=== PATIENT | male | born 1965 | race Caucasian/White ===

== ENCOUNTER 2018-01-28 13:21 | Emergency (ER) | payer SELFPAY ==
[2018-01-28 13:24] VITALS: BP 177/85; BMI 29.9
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
== END 2018-01-28 16:23 | disposition left against medical advice (07) ==
LOC: ER 13:28
DX: S22.088A Other fracture of T11-T12 vertebra, initial encounter for closed fracture (principal); S20.219A Contusion of unspecified front wall of thorax, initial encounter; M25.551 Pain in right hip; M54.5 Low back pain
CPT/HCPCS: 71046; 71120; 72131; 73501; 99283

== ENCOUNTER 2020-11-13 13:09 | Inpatient (IN) ==
[2020-11-13 14:06] VITALS: BMI 31.2
--- NOTE | 2020-11-13 14:12 | DR.DIZZY ---
HPI Time seen Time Seen by Provider: 11/13/20 13:42 HPI Comment HPI Comment: Patient sent to the ED via his PCP for admission. Patient notes that he has had flu like sx for the past 3-4 days. Notes nausea and vomiting. Denies any known sick contacts. Notes he has h/o HTN, which is very well controlled. Context Stroke Symptoms: None PMH PMH Past Surgical History: No Surgical History: No History Social History Do you use any recreational Drugs:: No ROS Review of Systems Constitutional: See HPI Respiratoy: Non-Productive Cough All Other Systems: Reviewed and Negative PE Vital Signs Vitals: Pulse Rate 81 Respiratory Rate 24 Blood Pressure 85/54 O2 Sat by Pulse Oximetry 94 General Limitations: No Limitations General Appearance: Alert and In No Apparent Distress Head Head Exam: Normal Inspection, Atraumatic and Normocephalic Eyes Eye exam: Normal Appearance and EOMI ENT ENT Exam: Normal Exam Neck Neck Exam: Normal Inspection Chest Chest Inspection: Normal Inspection and Symmetric Chest Wall Rise Respiratory Respiratory Exam: Bilateral: Rhonchi Cardiovascular Cardiovascular Exam: Regular Rate, Normal Rhythm and Normal Heart Sounds Abdominal Exam Abdominal Exam: Normal Inspection, Normal Bowel Sounds and Soft Extremeties Extremities Exam: Normal Inspection ROR Labs Reviewed Laboratory Results Reviewed?: Yes Result Diagrams: 11/13/20 14:57 11/13/20 14:57 Laboratory: WBC 22.3 X10^3/uL (3.6-10.0) H 11/13/20 14:57 RBC 4.97 X10^6/uL (4.7-6.0) 11/13/20 14:57 Hgb 20.9 g/dL (13.5-18.0) H* 11/13/20 14:57 Hct 59.7 % (42.0-54.0) H* 11/13/20 14:57 MCV 120.1 fL (80.0-100.0) H 11/13/20 14:57 MCH 42.1 pg (27.0-34.0) H 11/13/20 14:57 MCHC 35.0 g/dL (33.0-35.0) 11/13/20 14:57 RDW 14.4 % (11.6-16.5) 11/13/20 14:57 Plt Count 218 X10^3/uL (150.0-450.0) 11/13/20 14:57 Plt Count Comment Adequate (ADEQUATE) 11/13/20 14:57 MPV 8.5 fL (7.4-11.0) 11/13/20 14:57 Neut % (Auto) 81.0 % (42.0-75.0) H 11/13/20 14:57 Lymph % (Auto) 7.9 % (21.0-51.0) L 11/13/20 14:57 Martin % (Auto) 10.8 % (0.0-13.0) 11/13/20 14:57 Eos % (Auto) 0.1 % (0.9-2.9) L 11/13/20 14:57 Baso % (Auto) 0.2 % (0.2-1.0) 11/13/20 14:57 Neut # (Auto) 18.0 x10^3/uL (2.2-4.8) H 11/13/20 14:57 Lymph # (Auto) 1.8 X10^3/uL (1.3-2.9) 11/13/20 14:57 Martin # (Auto) 2.4 x10^3/uL (0.3-0.8) H 11/13/20 14:57 Eos # (Auto) 0.0 x10^3/uL (0.0-0.2) 11/13/20 14:57 Baso # (Auto) 0.0 X10^3/uL (0.0-0.1) 11/13/20 14:57 Absolute Nucleated RBC 0.8 /100WBC 11/13/20 14:57 Total Counted 100 11/13/20 14:57 Neutrophils % (Manual) 85 % (39-76) H 11/13/20 14:57 Lymphocytes % (Manual) 6 % (13-43) L 11/13/20 14:57 Monocytes % (Manual) 9 % (4-9) 11/13/20 14:57 Plt Morphology Comment Normal (NORMAL) 11/13/20 14:57 RBC Morphology Normal (NORMAL) 11/13/20 14:57 Macrocytosis 3+ A 11/13/20 14:57 Sodium 134 mmol/L (136-145) L 11/13/20 14:57 Corrected Sodium TNP 11/13/20 14:57 Potassium 3.5 mmol/L (3.5-5.1) 11/13/20 14:57 Chloride 91 mmol/L (98-107) L 11/13/20 14:57 Carbon Dioxide 19.7 mmol/L (21-32) L 11/13/20 14:57 BUN 50 mg/dL (7-18) H 11/13/20 14:57 Creatinine 9.06 mg/dL (0.70-1.30) H 11/13/20 14:57 Est GFR (MDRD) Af Amer 8 (>60) L 11/13/20 14:57 Est GFR (MDRD) Non-Af 6 (>60) L 11/13/20 14:57 Glucose 107 mg/dL (65-99) H 11/13/20 14:57 Calcium 10.0 mg/dL (8.5-10.1) 11/13/20 14:57 Corrected Calcium TNP 11/13/20 14:57 Total Bilirubin 0.30 mg/dL (0.2-1.0) 11/13/20 14:57 AST 28 Units/L (15-37) 11/13/20 14:57 ALT 38 Units/L (12-78) 11/13/20 14:57 Alkaline Phosphatase 82 Units/L (46-116) 11/13/20 14:57 Total Protein 9.6 g/dL (6.4-8.2) H 11/13/20 14:57 Albumin 4.0 g/dL (3.4-5.0) 11/13/20 14:57 Globulin 5.6 g/dL (2.5-4.5) H 11/13/20 14:57 Albumin/Globulin Ratio 0.7 Ratio (1.1-2.1) L 11/13/20 14:57 SARS CoV-2 RNA Rapid YESI Negative (NEGATIVE) 11/13/20 15:23 Opioid Opioid Risk Tool Total: 0 Total Score Risk Category: Low Risk Copyright: H[employer] predicting aberrant behaviors Diagnosis Discharge Problem: Pneumonia Qualifiers: Pneumonia type: due to unspecified organism Laterality: unspecified laterality Lung location: unspecified part of lung Qualified Code(s): J18.9 - Pneumonia, unspecified organism
[2020-11-13] MEDS ORDERED: NS 1000 ML 1,000 ML IV ONE ×3 (14:30→19:51)
[2020-11-13] MEDS ORDERED: NS 1000 ML 1,000 ML ONE ×3 (15:29→22:11)
[2020-11-13 16:00] LABS: BASOPHILS % (AUTO) 0.2 % (0.2-1.0); EOSINOPHILS % (AUTO) 0.1 % (0.9-2.9); LYMPHOCYTES # (AUTO) 1.8 X10^3/uL (1.3-2.9); LYMPHOCYTES % (AUTO) 7.9 % (21.0-51.0); MEAN CORPUSCULAR HEMOGLOBIN 42.1 pg (27.0-34.0); MEAN CORPUSCULAR VOLUME 120.1 fL (80.0-100.0); MEAN PLATELET VOLUME 8.5 fL (7.4-11.0); MONOCYTES # (AUTO) 2.4 x10^3/uL (0.3-0.8); MONOCYTES % (AUTO) 10.8 % (0.0-13.0); PLATELET COUNT 218 X10^3/uL (150.0-450.0); RED BLOOD COUNT 4.97 X10^6/uL (4.7-6.0); RED CELL DISTRIBUTION WIDTH 14.4 % (11.6-16.5); WHITE BLOOD COUNT 22.3 X10^3/uL (3.6-10.0)
[2020-11-13 16:08] LABS: HEMOGLOBIN 20.9 g/dL (13.5-18.0)
[2020-11-13] MEDS ORDERED: NS 100 ML IV 100 ML IV ONE (16:19)
[2020-11-13 16:25] LABS: ALANINE AMINOTRANSFERASE 38 Units/L (12-78); ALKALINE PHOSPHATASE 82 Units/L (46-116); ASPARTATE AMINO TRANSFERASE 28 Units/L (15-37); BLOOD UREA NITROGEN 50 mg/dL (7-18); CARBON DIOXIDE 19.7 mmol/L (21-32); CHLORIDE 91 mmol/L (98-107); CREATININE 9.06 mg/dL (0.70-1.30); SODIUM 134 mmol/L (136-145); TOTAL PROTEIN 9.6 g/dL (6.4-8.2); eGFR NON BLACK RACES 6 (>60)
[2020-11-13 16:53] LABS: PLATELET MORPHOLOGY COMMENT NORMAL (NORMAL)
--- NOTE | 2020-11-13 17:59 | CT ---
PROCEDURE: CT abdomen pelvis without contrast.HISTORY: Abdomen pain with nausea, vomiting, and diarrhea.TECHNIQUE: Axial images were performed through the abdomen and pelvis without the administration of IV contrast with multiplanar reformations . Oral contrast was not administered . Dose reduction techniques including Automated Exposure Control (AEC) and adjustment of mA and kV were utilized .COMPARISON: None .TECHNICAL QUALITY: Satisfactory .FINDINGS:Clear lung bases.Mild diffuse hepatic steatosis. Spleen, adrenals, pancreas show no abnormality. Kidneys show no masses, urinary tract stones, obstructive uropathy.Normal biliary tract.No abdominal ascites or pneumoperitoneum.Mild atherosclerosis aorta.No lymphadenopathy.No bowel obstruction or inflammation. Normal appendix right lower quadrant.Pelvis shows no masses or free fluid in normal urinary bladder.No acute bony abnormality.IMPRESSION:1. No bowel obstruction or inflammation.2. Mild diffuse hepatic steatosis.3. No other significant abnormality identified.Electronically signed by: Avery Oliva (Nov 13, 2020 17:57:11)
--- NOTE | 2020-11-13 18:05 | CT ---
HISTORYSOBSTUDYCHEST W/O CONCOMPARISONNoneTECHNIQUEMultiple axial images of the chest were obtained from the thoracic inlet to the upper abdomen without the administration of IV contrast. 3D reconstructions utilizing axial MIPS imaging was performed and reviewed. Dose reduction techniques including Automated Exposure Control (AEC) and adjustment of mA and kV were utilized.FINDINGSNo pneumothorax or effusion. Faint ground-glass opacities in the left upper lobe.The heart is normal in size. No evidence of pericardial disease. Coronary calcifications. No mediastinal or hilar adenopathy.No acute osseous abnormality.Hepatic steatosis. The remaining visualized portions of the upper abdomen demonstrate no significant abnormality.IMPRESSIONFaint ground-glass opacities in the left upper lobe which may reflect atelectasis or mild pneumonia.Electronically signed by: CARMEN KATZ (Nov 13, 2020 18:03:31)
[2020-11-13] MEDS ORDERED: ZOSYN VIAL 3.375 GRAMS 3.375 G in NS 100 ML IV + SPIKE MINIBAG* 100 ML IV ONE (18:39)
[2020-11-13] MEDS ORDERED: ZOSYN VIAL 3.375 GRAMS IV ONE (19:18)
[2020-11-13] MEDS ORDERED: NS 100 ML IV + SPIKE MINIBAG* 100 ML IV ONE (19:18)
[2020-11-13] MEDS ORDERED: VANCOMYCIN IV *PREMIX 1 G/200 ML BAG 1 G/200 ML PIGGYBACK IV ONE (19:56)
[2020-11-13] MEDS: VANCOMYCIN IV *PREMIX 1 G/200 ML BAG 1 G/200 ML PIGGYBACK IV SCH ×3 (19:58→21:22)
[2020-11-13] MEDS ORDERED: LEVSIN/MAALOX/LIDOC VISC ONE (20:23)
[2020-11-13] MEDS ORDERED: LEVSIN/MAALOX/LIDOC VISC PO ONE (20:23)
[2020-11-13] MEDS ORDERED: MARCAINE 0.25% INJ ONE (20:36)
[2020-11-13] MEDS ORDERED: XYLOCAINE 2 % (PLAIN) ONE (20:36)
[2020-11-13] MEDS ORDERED: HYDROCORTISONE CRM 1% TOP PRN (22:07)
[2020-11-13] MEDS ORDERED: NYSTATIN OINT ONE (22:11)
[2020-11-13] MEDS ORDERED: HYDROCORTISONE CRM 1% ONE (22:11)
[2020-11-13] MEDS: NYSTATIN CREAM TOP SCH (22:14)
[2020-11-13 22:37] LABS: BASOPHILS % (AUTO) 0.2 % (0.2-1.0); EOSINOPHILS % (AUTO) 0.1 % (0.9-2.9); HEMATOCRIT 53.6 % (42.0-54.0); HEMOGLOBIN 18.8 g/dL (13.5-18.0); LYMPHOCYTES # (AUTO) 1.8 X10^3/uL (1.3-2.9); LYMPHOCYTES % (AUTO) 7.6 % (21.0-51.0); MEAN CORPUSCULAR HEMOGLOBIN 42.4 pg (27.0-34.0); MEAN CORPUSCULAR VOLUME 121.1 fL (80.0-100.0); MEAN PLATELET VOLUME 8.3 fL (7.4-11.0); MONOCYTES % (AUTO) 12.3 % (0.0-13.0); NEUTROPHILS # (AUTO) 19.3 x10^3/uL (2.2-4.8); NEUTROPHILS % (AUTO) 79.8 % (42.0-75.0); PLATELET COUNT 205 X10^3/uL (150.0-450.0); RED BLOOD COUNT 4.43 X10^6/uL (4.7-6.0); RED CELL DISTRIBUTION WIDTH 14.5 % (11.6-16.5); WHITE BLOOD COUNT 24.2 X10^3/uL (3.6-10.0)
[2020-11-13 22:45] LABS: PLATELET MORPHOLOGY COMMENT NORMAL (NORMAL)
[2020-11-13 22:53] LABS: ALANINE AMINOTRANSFERASE 27 Units/L (12-78); ALBUMIN 3.2 g/dL (3.4-5.0); ALKALINE PHOSPHATASE 63 Units/L (46-116); ASPARTATE AMINO TRANSFERASE 21 Units/L (15-37); BLOOD UREA NITROGEN 56 mg/dL (7-18); CALCIUM 8.6 mg/dL (8.5-10.1); CARBON DIOXIDE 20.3 mmol/L (21-32); CHLORIDE 94 mmol/L (98-107); COR CA(FOR HYPOALB) 9.2 mg/dL (8.5-10.1); CREATININE 9.74 mg/dL (0.70-1.30); SODIUM 134 mmol/L (136-145); TOTAL PROTEIN 7.6 g/dL (6.4-8.2); TROPONIN I < 0.02 ng/mL (0-1.5); eGFR NON BLACK RACES 6 (>60)
[2020-11-13 22:58] LABS: CKMB % 0.6 % (<4); CREATINE KINASE 181 Units/L (39-308); CREATINE KINASE MB < 1.0 ng/mL (0-4.0); TROPONIN I < 0.02 ng/mL (0-1.5)
[2020-11-13] MEDS ORDERED: LOVENOX INJ 30 MG SYR SC SCH (23:00)
[2020-11-13] MEDS: NS 1000 ML 1,000 ML IV SCH (23:00)
[2020-11-13] MEDS ORDERED: DECADRON TAB ONE (23:16)
[2020-11-13] MEDS: ASCORBIC ACID INJ MULTI-DOSE VIAL 1,500 MG in NS 100 ML IV 100 ML IV SCH (23:36)
[2020-11-13] MEDS: DECADRON TAB PO SCH (23:36)
[2020-11-14] MEDS ORDERED: NS 1000 ML 1,000 ML ONE (01:00)
[2020-11-14] MEDS: ZINC SULFATE PO SCH ×3 (02:32→20:30)
[2020-11-14] MEDS: TRICOR TAB 160 MG PO SCH ×2 (02:32→10:50)
[2020-11-14] MEDS: VITAMIN D (1.25MG) PO SCH ×2 (02:32→10:49)
[2020-11-14] MEDS: VITAMIN A PO SCH ×2 (02:33→11:06)
[2020-11-14] MEDS ORDERED: LOVENOX INJ 60 MG SYR SC ONE (02:34)
[2020-11-14] MEDS: ASCORBIC ACID INJ MULTI-DOSE VIAL 1,500 MG in NS 100 ML IV 100 ML IV SCH ×4 (10:35→20:30)
[2020-11-14] MEDS: DECADRON TAB PO SCH (10:50)
[2020-11-14] MEDS: NYSTATIN CREAM TOP SCH ×2 (11:07→20:30)
[2020-11-14 11:33] LABS: HEMATOCRIT 59.7 % (42.0-54.0)
--- NOTE | 2020-11-14 11:36 | DR.H&P ---
H&P - History & Physical for Day of: H&P Date: 11/13/20 - Chief Complaint Chief Complaint: FLU LIKE SYMPTOMS, GARCÍA, KIDNEY FAILURE - History of Present Illness History of Present Illness: PT IS 54M REFERRED TO ER FOR ADMISSION, WITH POSSIBLE TRANSFER TO [facility] DUE TO RENAL FAILURE, NEED OF NEPHROLOGY PT. PT HAD NEGATIVE COVID SWAB IN ER. PT HAD PMH OF CRF, HTN, OA. PT ADMITTED TO [facility] ACUTE ILLNESS RO COVID 19 - Past Medical History Past Medical History: Hypertension - Past Surgical History Surgical History: No History - Medications Home Medications: No Known Drug Allergies Allergy (Verified 01/28/18 13:24) - Review of Systems Constitutional: Weakness Eyes: No Symptoms Reported ENT: No Symptoms Reported Respiratory: SOB with Excertion Cardiovascular: Palpitations Gastrointestinal: Nausea, Vomiting Genitourinary: Other (DECREASED URINE OUTPT) Musculoskeletal: Back Pain, Leg Pain Skin: No Symptoms Reported Neurological: Weakness - Physical Exam Vital Signs: Temperature 98.2 F Pulse Rate [Left Brachial] 78 Pulse Rate 81 Respiratory Rate 24 Blood Pressure [Left Arm] 119/59 Blood Pressure 85/54 O2 Sat by Pulse Oximetry 96 Oriented: Normal Eyes: Normal Ear: Normal Nose: Normal Throat: Normal Respiratory: Diminished Throughout Cardiovascular: Normal : Normal Auscultation: Bowel Sounds: Normal Palpation: Normal Tenderness: Epigastric, Mild Skin: Decreased Turgur Musculoskeletal: Back:Lumbar Psychiatric: Anxiety Affect: Anxious Speech Pattern: Clear, Appropriate - Assessment/Plan (1) Pneumonia Qualifiers: Pneumonia type: due to unspecified organism Laterality: unspecified laterality Lung location: unspecified part of lung Qualified Code(s): J18.9 - Pneumonia, unspecified organism Status: Acute Plan: ADMIT, IV HYDRATION STRICT I&OS. BP CONTROL, BC AND UC. SPUTUM, RESP THERAPY. VERIFY HOME MEDICATION. CT ABD PELVIS AND CT CHEST IN ER, COVID SCREEN (2) Acute renal failure Status: Acute (3) Hypertension Status: Acute - Allergies Allergies/Adverse Reactions: Allergies Allergy/AdvReac Type Severity Reaction Status Date / Time No Known Drug Allergies Allergy Verified 01/28/18 13:24
[2020-11-14 12:05] LABS: ABG BASE EXCESS -13.6 mmol/L (-2.0-2.0)
[2020-11-14 12:06] LABS: ABG ALLEN TEST POS; ABG HCO3 12.4 mmol/L (22-26)
[2020-11-14] MEDS ORDERED: DUONEB 0.5 MG/3 MG (3 mL) NEB ONE (12:19)
[2020-11-14] MEDS: DUONEB 0.5 MG/3 MG (3 mL) NEB SCH ×2 (12:25→21:05)
--- NOTE | 2020-11-14 12:45 | RAD ---
HISTORYPneumoniaSTUDYPortable AP chestCOMPARISONCT chest 11/13/2020, PA chest 01/28/2018FINDINGSNormal heart size and contour. The lungs are clear of active appearing disease. Left upper lobe infiltrate described on recent CT is not definitely identified.IMPRESSIONNo acute chest findings.Electronically signed by: ALISSON ZUNIGA (Nov 14, 2020 12:43:56)
[2020-11-14 14:28] LABS: ALANINE AMINOTRANSFERASE 34 Units/L (12-78); ALBUMIN 3.5 g/dL (3.4-5.0); ALKALINE PHOSPHATASE 76 Units/L (46-116); ASPARTATE AMINO TRANSFERASE 24 Units/L (15-37); BLOOD UREA NITROGEN 67 mg/dL (7-18); CALCIUM 8.5 mg/dL (8.5-10.1); CARBON DIOXIDE 17.5 mmol/L (21-32); CHLORIDE 94 mmol/L (98-107); CREATININE 8.44 mg/dL (0.70-1.30); SODIUM 134 mmol/L (136-145); TOTAL PROTEIN 8.2 g/dL (6.4-8.2); eGFR NON BLACK RACES 7 (>60)
[2020-11-14] MEDS: LIBRIUM PO PRN ×2 (15:23→23:12)
[2020-11-14] MEDS: LOMOTIL PO PRN (15:23)
[2020-11-14] MEDS ORDERED: ZITHROMAX INJ 500 MG VIAL IV ONE (17:02)
[2020-11-14] MEDS ORDERED: NS 250 ML IV 250 ML IV ONE ×2 (17:02→17:12)
[2020-11-14] MEDS: ZITHROMAX INJ 500 MG VIAL 250 MG in NS 250 ML IV 250 ML IV SCH (17:10)
[2020-11-14 18:03] LABS: BILIRUBIN,URINE NEGATIVE (NEGATIVE); BLOOD/HEMOGLOBIN,URINE 2+ (NEGATIVE); GLUCOSE, URINE NEGATIVE (NEGATIVE); KETONES,URINE 2+ (NEGATIVE); LEUKOCYTE ESTERASE ,URINE NEGATIVE (NEGATIVE); NITRITES,URINE NEGATIVE (NEGATIVE); PROTEIN,URINE 3+ (NEGATIVE); UROBILINOGEN,URINE NORMAL (NORMAL)
[2020-11-14 18:18] LABS: AMORPHOUS SEDIMENT,UR 2+ /HPF (NEGATIVE); APPEARANCE,URINE SLIGHTLY HAZY (CLEAR); BACTERIA,URINE TRACE /HPF (NEGATIVE); COLOR,URINE YELLOW (YELLOW); HYALINE CASTS, URINE FEW /LPF (NEGATIVE); SQUAMOUS EPITHELIAL CELL,UR FEW /HPF (NEGATIVE); TRANSITIONAL EPI CELLS,URINE FEW /HPF (NEGATIVE)
[2020-11-14 20:53] LABS: CRYPTOSPORIDIUM PARVUM ANTIGEN NEGATIVE (NEGATIVE); GIARDIA LAMBLIA ANTIGEN NEGATIVE (NEGATIVE)
[2020-11-14] MEDS: PULMICORT NEB TX 0.5 MG NEB SCH (21:05)
[2020-11-15] MEDS: NS 1000 ML 1,000 ML IV SCH (02:36)
[2020-11-15] MEDS: ASCORBIC ACID INJ MULTI-DOSE VIAL 1,500 MG in NS 100 ML IV 100 ML IV SCH ×4 (03:00→21:15)
[2020-11-15 05:33] LABS: BASOPHILS % (AUTO) 0.1 % (0.2-1.0); HEMATOCRIT 48.4 % (42.0-54.0); HEMOGLOBIN 16.9 g/dL (13.5-18.0); LYMPHOCYTES # (AUTO) 1.2 X10^3/uL (1.3-2.9); MEAN CORPUSCULAR HGB CONC 34.9 g/dL (33.0-35.0); MEAN CORPUSCULAR VOLUME 120.4 fL (80.0-100.0); MEAN PLATELET VOLUME 8.2 fL (7.4-11.0); MONOCYTES # (AUTO) 1.3 x10^3/uL (0.3-0.8); MONOCYTES % (AUTO) 7.7 % (0.0-13.0); NEUTROPHILS # (AUTO) 14.6 x10^3/uL (2.2-4.8); NEUTROPHILS % (AUTO) 85.2 % (42.0-75.0); PLATELET COUNT 224 X10^3/uL (150.0-450.0); RED BLOOD COUNT 4.02 X10^6/uL (4.7-6.0); RED CELL DISTRIBUTION WIDTH 14.5 % (11.6-16.5); WHITE BLOOD COUNT 17.1 X10^3/uL (3.6-10.0)
[2020-11-15 05:54] LABS: ALBUMIN 3.1 g/dL (3.4-5.0); CALCIUM 7.7 mg/dL (8.5-10.1); CARBON DIOXIDE 15.5 mmol/L (21-32); COR CA(FOR HYPOALB) 8.4 mg/dL (8.5-10.1); CREATININE 5.9 mg/dL (0.70-1.30); TOTAL PROTEIN 7.1 g/dL (6.4-8.2)
[2020-11-15 06:17] LABS: PLATELET MORPHOLOGY COMMENT NORMAL (NORMAL)
[2020-11-15] MEDS: DUONEB 0.5 MG/3 MG (3 mL) NEB SCH ×3 (06:40→21:15)
[2020-11-15] MEDS ORDERED: VITAMIN A PO SCH (09:00)
[2020-11-15] MEDS ORDERED: VANCOMYCIN IV *PREMIX 1 G/200 ML BAG 1 G/200 ML PIGGYBACK IV SCH (09:00)
[2020-11-15] MEDS: DECADRON TAB PO SCH (09:30)
[2020-11-15] MEDS: LIBRIUM PO PRN ×2 (09:31→21:15)
[2020-11-15] MEDS: NYSTATIN CREAM TOP SCH ×2 (09:31→21:15)
[2020-11-15] MEDS: TRICOR TAB 160 MG PO SCH (09:31)
[2020-11-15] MEDS: VITAMIN D3 125 mcg (5,000 UNITS) PO SCH (09:31)
[2020-11-15] MEDS: LOMOTIL PO PRN (09:31)
[2020-11-15] MEDS: ZINC SULFATE PO SCH ×2 (09:32→21:15)
[2020-11-15] MEDS: ZITHROMAX INJ 500 MG VIAL 250 MG in NS 250 ML IV 250 ML IV SCH (09:32)
[2020-11-15] MEDS: PULMICORT NEB TX 0.5 MG NEB SCH ×2 (10:35→21:15)
[2020-11-15 11:19] LABS: TOTAL PSA 0.49 ng/mL (0.13-4.0)
[2020-11-15] MEDS: NICOTINE PATCH TD SCH (15:30)
[2020-11-16] MEDS: ASCORBIC ACID INJ MULTI-DOSE VIAL 1,500 MG in NS 100 ML IV 100 ML IV SCH ×5 (02:40→21:33)
[2020-11-16] MEDS: NS 1000 ML 1,000 ML IV SCH (03:36)
[2020-11-16 05:56] LABS: ALBUMIN 2.9 g/dL (3.4-5.0); CALCIUM 7.9 mg/dL (8.5-10.1); COR CA(FOR HYPOALB) 8.8 mg/dL (8.5-10.1); CREATININE 2.05 mg/dL (0.70-1.30); TOTAL PROTEIN 6.4 g/dL (6.4-8.2)
[2020-11-16 06:10] LABS: BASOPHILS # (AUTO) 0.1 X10^3/uL (0.0-0.1); BASOPHILS % (AUTO) 0.3 % (0.2-1.0); HEMOGLOBIN 15.5 g/dL (13.5-18.0); LYMPHOCYTES # (AUTO) 1.3 X10^3/uL (1.3-2.9); LYMPHOCYTES % (AUTO) 6.8 % (21.0-51.0); MEAN CORPUSCULAR HEMOGLOBIN 42.3 pg (27.0-34.0); MEAN CORPUSCULAR HGB CONC 35.2 g/dL (33.0-35.0); MEAN CORPUSCULAR VOLUME 120.2 fL (80.0-100.0); MEAN PLATELET VOLUME 8.3 fL (7.4-11.0); MONOCYTES # (AUTO) 1.7 x10^3/uL (0.3-0.8); NEUTROPHILS % (AUTO) 83.9 % (42.0-75.0); PLATELET COUNT 230 X10^3/uL (150.0-450.0); RED BLOOD COUNT 3.66 X10^6/uL (4.7-6.0); RED CELL DISTRIBUTION WIDTH 14.4 % (11.6-16.5); WHITE BLOOD COUNT 19.1 X10^3/uL (3.6-10.0)
[2020-11-16] MEDS: DUONEB 0.5 MG/3 MG (3 mL) NEB SCH ×3 (06:33→20:40)
[2020-11-16 06:54] LABS: PLATELET MORPHOLOGY COMMENT NORMAL (NORMAL)
--- NOTE | 2020-11-16 08:24 | US ---
HISTORYACUTE RENAL FAILURESTUDYRENAL USCOMPARISONNoneTECHNIQUEMultiple rodriguez scale and color flow Doppler images of the kidneys were obtained. The region of the urinary bladder was evaluated as well.FINDINGSThe right kidney is normal in echotexture and size. The right kidney measures 11 cm in length by 5.2 cm AP by 6.9 cm transverse with a cortical thickness of 1.45 cm. There is normal vascular flow to the right kidney.. No focal mass, hydronephrosis, or stones identified.The left kidney is unremarkable in its echotexture and size. The left kidney measures 12.2 cm in length by 5.3 cm AP by 5.6 cm transverse with a cortical thickness of 1.7 cm.. Normal vascular flow to the left kidney is observed. No focal mass, hydronephrosis, or stone can be seen within the left kidney.The region of the urinary bladder is grossly unremarkable.IMPRESSIONUnremarkable evaluation of the kidneys and urinary bladder..Electronically signed by: JOE MORALES (Nov 16, 2020 08:22:18)
[2020-11-16] MEDS ORDERED: PHARMACY COMMENT IV NR (08:30)
[2020-11-16] MEDS: PULMICORT NEB TX 0.5 MG NEB SCH ×2 (09:05→20:40)
[2020-11-16] MEDS: ZITHROMAX INJ 500 MG VIAL 250 MG in NS 250 ML IV 250 ML IV SCH (10:49)
[2020-11-16] MEDS: VITAMIN D3 125 mcg (5,000 UNITS) PO SCH (11:16)
[2020-11-16] MEDS: TRICOR TAB 160 MG PO SCH (11:16)
[2020-11-16] MEDS: DECADRON TAB PO SCH (11:16)
[2020-11-16] MEDS: ZINC SULFATE PO SCH ×2 (11:16→21:33)
[2020-11-16] MEDS: NICOTINE PATCH TD SCH (11:18)
[2020-11-16 12:06] LABS: CREATININE 1.79 mg/dL (0.70-1.30); VANCOMYCIN,TROUGH 8.3 ug/mL (15-20)
[2020-11-16] MEDS ORDERED: VANCOMYCIN IV *PREMIX 1.5 G/300 ML BAG 1.5 G/300 ML PIGGYBACK IV SCH (15:00)
[2020-11-16] MEDS: NYSTATIN CREAM TOP SCH ×2 (15:05→21:33)
[2020-11-16] MEDS: LIBRIUM PO PRN (21:33)
[2020-11-17] MEDS: ASCORBIC ACID INJ MULTI-DOSE VIAL 1,500 MG in NS 100 ML IV 100 ML IV SCH ×2 (02:57→08:42)
[2020-11-17 04:33] LABS: ABG ALLEN TEST POS; ABG BASE EXCESS -2.6 mmol/L (-2.0-2.0); ABG HCO3 21.7 mmol/L (22-26)
[2020-11-17] MEDS: DUONEB 0.5 MG/3 MG (3 mL) NEB SCH (05:00)
[2020-11-17] MEDS: NS 1000 ML 1,000 ML IV SCH (05:02)
[2020-11-17 06:18] LABS: BASOPHILS % (AUTO) 0.2 % (0.2-1.0); HEMATOCRIT 44.4 % (42.0-54.0); HEMOGLOBIN 15.3 g/dL (13.5-18.0); LYMPHOCYTES # (AUTO) 1.7 X10^3/uL (1.3-2.9); LYMPHOCYTES % (AUTO) 10.2 % (21.0-51.0); MEAN CORPUSCULAR HEMOGLOBIN 41.7 pg (27.0-34.0); MEAN CORPUSCULAR HGB CONC 34.6 g/dL (33.0-35.0); MEAN CORPUSCULAR VOLUME 120.5 fL (80.0-100.0); MEAN PLATELET VOLUME 8.7 fL (7.4-11.0); MONOCYTES # (AUTO) 1.7 x10^3/uL (0.3-0.8); MONOCYTES % (AUTO) 10.6 % (0.0-13.0); NEUTROPHILS # (AUTO) 13.1 x10^3/uL (2.2-4.8); PLATELET COUNT 256 X10^3/uL (150.0-450.0); RED BLOOD COUNT 3.68 X10^6/uL (4.7-6.0); RED CELL DISTRIBUTION WIDTH 14.2 % (11.6-16.5); WHITE BLOOD COUNT 16.5 X10^3/uL (3.6-10.0)
[2020-11-17 06:22] LABS: ALANINE AMINOTRANSFERASE 53 Units/L (12-78); ALBUMIN 2.8 g/dL (3.4-5.0); ALKALINE PHOSPHATASE 73 Units/L (46-116); ASPARTATE AMINO TRANSFERASE 36 Units/L (15-37); BLOOD UREA NITROGEN 38 mg/dL (7-18); CALCIUM 8.3 mg/dL (8.5-10.1); CARBON DIOXIDE 20.2 mmol/L (21-32); CHLORIDE 108 mmol/L (98-107); COR CA(FOR HYPOALB) 9.3 mg/dL (8.5-10.1); SODIUM 142 mmol/L (136-145); TOTAL PROTEIN 6.2 g/dL (6.4-8.2); eGFR NON BLACK RACES > 60 (>60)
[2020-11-17 07:20] LABS: PLATELET MORPHOLOGY COMMENT NORMAL (NORMAL)
[2020-11-17] MEDS: TRICOR TAB 160 MG PO SCH (08:44)
[2020-11-17] MEDS: NICOTINE PATCH TD SCH (08:44)
[2020-11-17] MEDS: DECADRON TAB PO SCH (08:44)
[2020-11-17] MEDS: ZINC SULFATE PO SCH (08:45)
[2020-11-17] MEDS: VITAMIN D3 125 mcg (5,000 UNITS) PO SCH (08:45)
[2020-11-17] MEDS: ZITHROMAX INJ 500 MG VIAL 250 MG in NS 250 ML IV 250 ML IV SCH (09:57)
[2020-11-17] MEDS: PULMICORT NEB TX 0.5 MG NEB SCH (10:33)
[2020-11-17 10:51] VITALS: BP 148/75
[2020-11-18] MEDS ORDERED: PHARMACY COMMENT IV NR (08:30)
== END 2020-11-17 12:30 | disposition home or self-care (01) | DRG 194 ==
LOC: ER 13:09 → OBS 22:15 → MED/SURG 22:41 → OBS 23:00 → MED/SURG 11-14 04:19
PROVIDERS: ADMIT Internal Medicine; ATTEND Obstetrics & Gynecology Obstetrics
DX: N17.8 Other acute kidney failure; R79.82 Elevated C-reactive protein (CRP); Z20.828 Contact with and (suspected) exposure to other viral communicable diseases; K52.89 Other specified noninfective gastroenteritis and colitis; E86.0 Dehydration; I95.89 Other hypotension; R00.0 Tachycardia, unspecified; J18.8 Other pneumonia, unspecified organism; I12.9 Hypertensive chronic kidney disease with stage 1 through stage 4 chronic kidney disease, or unspecified chronic kidney disease; N18.9 Chronic kidney disease, unspecified; E87.1 Hypo-osmolality and hyponatremia; E87.2 Acidosis